=== PATIENT | female | born 1960 | race Caucasian/White ===

== ENCOUNTER 2019-12-17 09:18 | Outpatient (CLI) | payer OTHER ==
[2019-12-17 10:03] LABS: #Basophils 0.1 thou/uL (0.0-0.2); #Eosinphils 0.1 thou/uL (0.0-0.7); #Lymphocytes 1.4 thou/uL (1.20-3.40); #Monocytes 0.5 thou/uL (0.11-0.59); #Neutrophils 3.6 thou/uL (1.40-6.50); %Basophils 1.1 % (0.0-1.0); %Eosinophils 1.6 % (0.0-10.0); %Lymphocytes 24.1 % (21.0-51.0); %Monocytes 9.5 % (0.0-10.0); %Neutrophils 63.8 % (42.0-75.0); Hemoglobin 13.3 g/dL (12.0-16.0); Mean Corpuscular HGB CONC 31.2 g/dL (32.0-36.0); Mean Corpuscular Hemoglobin 28.3 pg (27.0-31.0); Mean Corpuscular Volume 90.9 fL (78.0-98.0); Mean Platelet Volume 9.5 fL (7.4-10.4); Platelet Count 151 thou/uL (130-400); RBC Distribution Width 12.9 % (11.5-14.5); Red Blood Cell (RBC) Count 4.71 mill/uL (4.20-5.40); White Blood Cell (WBC) Count 5.7 thou/uL (4.8-10.8)
[2019-12-17 10:32] LABS: ALT (SGPT) 44 U/L (8-55); AST (SGOT) 33 U/L (5-34); Alkaline Phosphatase 77 U/L (40-110); Anion Gap 18 mmol/L (10-20); BUN (Urea Nitrogen) 20 mg/dL (9.8-20.1); Bilirubin, Total 0.4 mg/dL (0.2-1.2); Calc. Creatinine Clearance 0 mL/min (70-130); Calcium 9.2 mg/dL (7.8-10.44); Carbon Dioxide 26 mmol/L (22-29); Cardiac Risk 4.2 (Less than 4.5); Chloride 96 mmol/L (98-107); Cholesterol 168 mg/dl (< 200 Desired); Estimated GFR-MDRD 58; Globulin 3.6 g/dL (2.4-3.5); Glucose 283 mg/dL (70-105); HDL Cholesterol 40 mg/dL (>60 Neg Risk); LDL Cholesterol, Calculated 93 mg/dL; Potassium 4.3 mmol/L (3.5-5.1); Protein, Total 7.6 g/dL (6.0-8.3); Sodium 136 mmol/L (136-145); Triglycerides 176 mg/dL (Less than 150)
[2019-12-17 21:22] LABS: Hemoglobin A1c 10.5 % (4.0-6.0)
== END 2019-12-17 09:19 | disposition home or self-care (01) ==
LOC: MADLAB 09:18
PROVIDERS: ATTEND Family Medicine
DX: E11.42 Type 2 diabetes mellitus with diabetic polyneuropathy (principal); E78.5 Hyperlipidemia, unspecified
CPT/HCPCS: 36415; 80053; 80061; 83036; 85025

== ENCOUNTER 2020-03-23 07:26 | Outpatient (CLI) | payer OTHER ==
--- NOTE | 2020-03-23 08:18 | ULT ---
ULTRASOUND ABDOMEN: HISTORY: Elevated liver enzymes. Hepatitis C since FINDINGS: There is increased echogenicity in the liver consistent with fatty infiltration. No definite mass or abnormal biliary ductal dilatation is seen. The patient is post cholecystectomy. The common duct measures 5 mm in diameter. The spleen is enlarged measuring 14.4 cm. The kidneys are normal. No free fluid is seen. The pancreas , aorta and IVC are not satisfactorily visualized due to overlying bowel gas. IMPRESSION: 1. Fatty liver. 2. Splenomegaly. In the setting of fatty liver sensitivity of the exam is lowered. CT scan with and without IV contras t using the liver mass protocol is recommended.
== END 2020-03-23 07:27 | disposition home or self-care (01) ==
LOC: MADRAD 07:26
PROVIDERS: ATTEND Internal Medicine Gastroenterology
DX: R94.5 Abnormal results of liver function studies (principal); R19.4 Change in bowel habit; Z12.11 Encounter for screening for malignant neoplasm of colon; K76.0 Fatty (change of) liver, not elsewhere classified; R16.1 Splenomegaly, not elsewhere classified; Z80.0 Family history of malignant neoplasm of digestive organs
CPT/HCPCS: 93975

== ENCOUNTER 2021-07-17 09:27 | Emergency (ER) | payer OTHER ==
[2021-07-17 09:57] LABS: Bilirubin Negative (Negative); Blood, Urine Large (Negative); Glucose, Urine (Dipstick) >=1000 mg/dL (Negative); Ketone, Urine 15 mg/dL (Negative); Leukocyte Small (Negative); Nitrite Negative (Negative); Protein, Urine (Dipstick) 30 mg/dL (Neg-Trace); Specific Gravity, Urine 1.015 (1.005-1.030); pH, Urine 7.5 (5.0-9.0)
[2021-07-17 09:59] LABS: Clarity Hazy (Clear)
[2021-07-17 10:05] LABS: Bacteria/HPF 3+ HPF (None Seen); WBC/HPF 21-50 HPF (0-3)
[2021-07-17] MEDS ORDERED: Sulfameth/Trimethoprim DS 800-160mg TAB ONE (10:32)
[2021-07-17 16:42] LABS: SARS-CoV-2 PCR by NAA Not Detected (NotDetected)
== END 2021-07-17 10:44 | disposition home or self-care (01) ==
LOC: MADERS 09:27
DX: B34.9 Viral infection, unspecified (principal); N30.00 Acute cystitis without hematuria; Z20.822 Contact with and (suspected) exposure to COVID-19; I11.0 Hypertensive heart disease with heart failure; I50.9 Heart failure, unspecified; J44.9 Chronic obstructive pulmonary disease, unspecified; E66.9 Obesity, unspecified; E11.40 Type 2 diabetes mellitus with diabetic neuropathy, unspecified; F17.290 Nicotine dependence, other tobacco product, uncomplicated; F17.210 Nicotine dependence, cigarettes, uncomplicated
CPT/HCPCS: 81003; 81015; 87077; 87086; 87186; 87804; 99283; U0003; U0005

== ENCOUNTER 2024-03-26 20:56 | Emergency (ER) | payer OTHER ==
[2024-03-26] MEDS ORDERED: Clindamycin 150 MG CAP ONE (21:35)
[2024-03-26] MEDS ORDERED: HYDROcodone/Acetaminophen 10/325 mg Tablet ONE (21:35)
[2024-03-26] MEDS ORDERED: Ibuprofen 800 MG TAB ONE (21:35)
[2024-03-26] MEDS ORDERED: Lidocaine 1% w/Epinephrine 1:100K 20 ML VIAL ONE (21:35)
== END 2024-03-26 22:48 | disposition home or self-care (01) ==
LOC: MADERS 20:56
DX: L02.215 Cutaneous abscess of perineum (principal); I11.0 Hypertensive heart disease with heart failure; I50.9 Heart failure, unspecified; E11.40 Type 2 diabetes mellitus with diabetic neuropathy, unspecified; J44.9 Chronic obstructive pulmonary disease, unspecified; F17.210 Nicotine dependence, cigarettes, uncomplicated; Z79.899 Other long term (current) drug therapy; Z79.84 Long term (current) use of oral hypoglycemic drugs
CPT/HCPCS: 56405